=== PATIENT | female | born 1985 | race Caucasian/White ===

== ENCOUNTER 2023-01-10 16:42 | Emergency (ER) | payer BC, SELFPAY ==
[2023-01-10 16:47] VITALS: BP 105/80; PULSE 84; RESP 20; TEMP 36.8; O2SAT 97; BMI 37.6
--- NOTE | 2023-01-10 16:59 | ED_ITS ---
HPI - General Adult General Chief complaint: Anxiety Stated complaint: anxiety Time Seen by Provider: 01/10/23 16:48 Source: patient Mode of arrival: walk-in Limitations: no limitations History of Present Illness HPI narrative: patient is a 37-year-old female presents to the Emergency Room with her for evaluation of panic and anxiety. Patient has a long history of anxiety attacks and is treated with multiple medications through his psychiatrist and participates in counseling with [facility] mental health. She denies any alcohol or drug use. patient denies any suicidal or homicidal ideations. States she has been struggling with anxiety attacks for the past five days, she contacted her psychiatrist regarding medication and was sent to the Emergency Room. Patient states her medication dosages have not changed, she's had increased stress with her family and financial situation. She reports having support in the home. She denies any pain or discomfort denies chest pain or shortness of breath. Patient states she does have her medications at home. Patient feels she is having a falling out with her counselor as her son is also involved in counseling getting mixed reports. reports patient feels safe in the home and there is no guns or other readily available items for self harm, and pt reports no intentions. Onset (ago): day(s) (5) Related Data Home Medications Medication Instructions Recorded Confirmed cariprazine 1.5 mg capsule 1.5 mg PO Q24H 01/10/23 01/10/23 (Vraylar) lamotrigine 150 mg tablet 150 mg PO BID 01/10/23 01/10/23 (Lamictal) sertraline 100 mg tablet (Zoloft) 100 mg PO Q24H 01/10/23 01/10/23 Previous Rx's Medication Instructions Recorded hydroxyzine pamoate 50 mg capsule 50 mg PO TID PRN anxiety #12 caps 01/10/23 (Vistaril) hydroxyzine pamoate 50 mg capsule 50 mg PO TID PRN anxitey #12 caps 01/10/23 (Vistaril) hydroxyzine pamoate 50 mg capsule 50 mg PO TID PRN anxitey #12 caps 01/10/23 (Vistaril) Allergies Allergy/AdvReac Type Severity Reaction Status Date / Time pertussis vaccine,adsorbed Allergy Intermediate Verified 01/10/23 16:51 Review of Systems ROS Constitutional Denies: fever or chills Eyes Denies: change in vision Cardiovascular Denies: chest pain, palpitations, edema or shortness of breath when lying down Respiratory Denies: shortness of breath Genitourinary Denies: painful urination or urinary frequency Musculoskeletal Denies: back pain Integumentary/Breast Denies: rash Neurological Denies: headache Psychiatric Reports: anxiety Endocrine Denies: excessive urination Allergic/Immunologic Denies: hives Exam Narrative: Exam Narrative: Nurses notes and vital signs reviewed and patient is not hypoxic. General: The patient appears well sitting comfortably on the cot, patient tearful when discussing home stressors and recurrent anxiety/panic attacks Skin: Warm, dry, no pallor noted. Head: Normocephalic, atraumatic Neck: Supple, trachea mid-line, no tenderness, no lymphadenopathy Eye: Pupils are equal, round and reactive to light, EOMI Ears, Nose, Mouth, and Throat: TM are clear, normal light reflex, oral mucosa is moist, no posterior oropharynx erythema or hypertrophy, uvula is mid-line Cardiovascular: Regular Rate and Rhythm Respiratory: Patient is in no distress, no accessory muscle use, lungs are clear to auscultation, no wheezing, rales or rhonchi. Chest Wall: no tenderness Back: non-tender, no CVA tenderness Musculoskeletal: normal ROM, no tenderness, no swelling, no signs of self injury GI: Normal bowel sounds, no tenderness to palpation, no masses appreciated. No rebound, guarding, or rigidity noted. Neurological: A&O x4 Psychiatric: Cooperative, anxious, easily redirectable Constitutional: Vital Signs, click to edit/add: Vital Signs - 24 hr 01/10/23 16:47 01/10/23 18:02 Temperature 98.2 F Pulse Rate [Monito r] 84 70 Respiratory Rate 20 18 Blood Pressure [Ri ght Arm] 105/80 H Pulse Oximetry 97 97 Oxygen Delivery Me thod Room Air Room Air Course Vital Signs Vital signs: Vital Signs Temperature 98.2 F 01/10/23 16:47 Pulse Rate 84 01/10/23 16:47 Respiratory Rate 20 01/10/23 16:47 Blood Pressure 105/80 H 01/10/23 16:47 Pulse Oximetry 97 01/10/23 16:47 Oxygen Delivery Method Room Air 01/10/23 16:47 Temperature 98.2 F 01/10/23 16:47 Pulse Rate 70 01/10/23 18:02 Respiratory Rate 18 01/10/23 18:02 Blood Pressure 105/80 H 01/10/23 16:47 Pulse Oximetry 97 01/10/23 18:02 Oxygen Delivery Method Room Air 01/10/23 18:02 Medical Decision Making MDM Narrative Medical decision making narrative: patient has taken Valium in the past for acute episodes with relief, she is on three main baseline medications. She denies any suicidal or homicidal ideations and her at bedside is on board with a safe home plan in home environment. Patient will speak with the [facility] mental health counseling regarding outpatient follow-up for further treatment patient has no other symptoms of chest pain or shortness of breath Patient spoke with mental health counselor, did not feel any need for urgent intervention. The patient declines any follow-up with her intervention team and has established counseling through, patient reports feeling better after medication and plans to contact her therapist to discuss ongoing treatment. She'll be supplemented with a prescription for Vistaril and we discussed the sedation side effects, do not recommend driving and discuss further medication treatments with her psychiatrist The patient is to followup with primary care physician in next 2-3 days or to return to the emergency department should any of the signs or symptoms worsen or new symptoms develop. Patient had questions answered. The patient agrees with the following Diagnosis and Treatment plan and the patient will be discharged home. Discharge Plan Discharge Chief Complaint: Anxiety Clinical Impression: Acute anxiety Patient Disposition: Home, Self-Care Condition: Good Prescriptions: New hydroxyzine pamoate [Vistaril] 50 mg capsule 50 mg PO TID PRN (Reason: anxiety) Qty: 12 0RF hydroxyzine pamoate [Vistaril] 50 mg capsule 50 mg PO TID PRN (Reason: anxitey) Qty: 12 0RF hydroxyzine pamoate [Vistaril] 50 mg capsule 50 mg PO TID PRN (Reason: anxitey) Qty: 12 0RF Continued lamotrigine [Lamictal] 150 mg tablet 150 mg PO BID sertraline [Zoloft] 100 mg tablet 100 mg PO Q24H Vraylar 1.5 mg capsule 1.5 mg PO Q24H Instructions: Anxiety (ED) Interventions: ED Discharge Assessment Last Done: 01/10/23 18:02 Stand Alone Forms: Portal Instructions Referrals: CARMELO CHAVEZ [Primary Care Provider] - 1 week Follow Up Appointments: [facility] Mental health: z( crisis line) Discharge Date/Time: 01/10/23 18:04
[2023-01-10] MEDS: DIAZEPAM 5 MG TABLET PO (17:15)
[2023-01-10 18:02] VITALS: PULSE 70; RESP 18; O2SAT 97
== END 2023-01-10 18:04 | disposition home or self-care (01) ==
LOC: ER 17:55
PROVIDERS: Emergency Provider Emergency Medicine; PCP Family Medicine
DX: F41.9 Anxiety disorder, unspecified (principal); Z79.899 Other long term (current) drug therapy
CPT/HCPCS: 99283

== ENCOUNTER 2024-12-11 23:03 | Emergency (ER) | payer MEDICAID, SELFPAY ==
[2024-12-11 23:07] VITALS: BP 118/60; PULSE 64; TEMP 37.1; O2SAT 98; BMI 29.0
--- NOTE | 2024-12-11 23:29 | ED.EXTPRO1 ---
HPI - Extremity Problem General Chief complaint: Extremity Problem, Nontraumatic Stated complaint: ARM NUMBNESS Time Seen by Provider: 12/11/24 23:12 Source: patient Mode of arrival: walk-in Limitations: no limitations History of Present Illness HPI Narrative: The patient is a 39-year-old female presenting to the emergency department for right upper extremity pain and numbness. She states that the pain is so severe she is unable to move her right upper extremity she cannot feel anything. She states that she has fibromyalgia and this feels like a acute exacerbation of her chronic pain. Patient indicated that trying to move her arm makes it worse. Nothing makes it better. She is not able to sleep. She takes gabapentin and it has not helped with her pain. Patient does not go to pain clinic. Patient does not go to physical therapy. Patient denied any heavy lifting, moving, twisting or repetitive movements. This has happened to the patient before Related Data Home Medications ?Medication ?Instructions ?Recorded ?Confirmed cariprazine 1.5 mg capsule 1.5 mg PO Q24H 01/10/23 01/10/23 (Vraylar) lamotrigine 150 mg tablet 150 mg PO BID 01/10/23 01/10/23 (Lamictal) sertraline 100 mg tablet (Zoloft) 100 mg PO Q24H 01/10/23 01/10/23 famotidine 40 mg tablet 40 mg PO QDAY 01/11/23 01/11/23 Previous Rx's ?Medication ?Instructions ?Recorded hydroxyzine pamoate 50 mg capsule 50 mg PO TID PRN anxiety #12 caps 01/10/23 (Vistaril) hydroxyzine pamoate 50 mg capsule 50 mg PO TID PRN anxitey #12 caps 01/10/23 (Vistaril) hydroxyzine pamoate 50 mg capsule 50 mg PO TID PRN anxitey #12 caps 01/10/23 (Vistaril) cyclobenzaprine 10 mg tablet 10 mg PO TID PRN muscle spasm #10 12/11/24 tabs hydrocodone 5 mg-acetaminophen 325 1 tab PO Q6H PRN pain #10 tabs 12/11/24 mg tablet Allergies Allergy/AdvReac Type Severity Reaction Status Date / Time pertussis vaccine,adsorbed Allergy Intermediate Unknown Verified 12/11/24 23:07 Review of Systems ROS Status of ROS 10 or more systems reviewed and unremarkable except as noted in history and below [facility] Social History Little interest or pleasure in doing things: not at all Feeling down, depressed, or hopeless: not at all Exam Constitutional Vital Signs, click to edit/add: Last Vital Signs Temp 98.8 F 12/11/24 23:07 Pulse 64 12/11/24 23:07 Resp 16 12/11/24 23:07 BP 118/60 12/11/24 23:07 Pulse Ox 98 12/11/24 23:07 O2 Del Method Room Air 12/11/24 23:07 Common normals: no apparent distress, average body habitus, oriented x3, no limitations, healthy appearing, alert and well nourished General appearance: cooperative, in distress and anxious Orientation/consciousness: Yes awake, Yes oriented to person, Yes oriented to place and Yes oriented to time HENHI Common normals: normocephalic, head/scalp atraumatic, hearing grossly normal bilaterally and moist oral mucous membranes Face and sinus: normal facial exam Eye Common normals: PERRL, EOMs intact bilaterally and conjunctivae normal Neck & C-Spine Common normals: full ROM, no lymphadenopathy, supple, no meningeal signs, no JVD, thyroid normal and no carotid bruits General: normal visual inspection and trachea midline Chest Common normals: inspection of chest normal and palpation of chest normal Respiratory Common normals: normal respiratory effort, no retractions, no use of accessory muscles and clear to auscultation bilaterally Cardio Common normals: no JVD, regular rate, regular rhythm, S1 normal heart sound, S2 normal heart sound, no gallops, no clicks and no murmurs Extremity Common normals: normal to inspection, full ROM, normal capillary refill, no joint enlargement and no clubbing, cyanosis or edema General: normal exam except as noted Right upper extremity: upper arm (Exquisitely painful to the touch.) Course Course Hospital Course: Patient was seen and evaluated. I immediately ordered Toradol 15 mg IM and orphenadrine 60 mg IM. I ordered some basic metabolic panel and magnesium. Patient also had an ultrasound it was limited to the right upper extremity performed by me. She has no risk factors for DVT but I very carefully examine the arm for compressibility of the veins and it was a very easy study to perform. Vital Signs Vital signs: Vital Signs Temperature 98.8 F 12/11/24 23:07 Pulse Rate 64 12/11/24 23:07 Respiratory Rate 16 12/11/24 23:07 Blood Pressure 118/60 12/11/24 23:07 Pulse Oximetry 98 12/11/24 23:07 Oxygen Delivery Method Room Air 12/11/24 23:07 Temperature 98.8 F 12/11/24 23:07 Pulse Rate 64 12/11/24 23:07 Respiratory Rate 16 12/11/24 23:07 Blood Pressure 118/60 12/11/24 23:07 Pulse Oximetry 98 12/11/24 23:07 Oxygen Delivery Method Room Air 12/11/24 23:07 MDM - Extremity (Nontraumatic) MDM Narrative Medical decision making narrative: In summary the patient has pain in the right upper extremity could be attributed to the following: Cervical radiculopathy, musculoskeletal strain, DVT, electrolyte abnormality. She does have right hand dominance and this is her right upper extremity it could be from overuse. Little clinical concern that there is risk factors for DVT. But I did do an ultrasound scan on her anyway to help narrow the differential. No evidence of any type of venous occlusion. Differential Diagnosis Differential diagnosis: Likely herpes zoster (Ruled out with no rash present), gout (It is not the joints that are hurting.), cellulitis (No redness, warmth, or well-defined or demarcated borders), superficial thrombophlebitis (No red or firm vessels present. No recent IVs.) and deep venous thrombosis of upper extremity (No risk factors but I personally use a ultrasound to look at all of the vessels in the right upper extremity there is negative evidence of a DVT.) Medical Records Attestation: I reviewed the patient's medical records. Medical records narrative: Patient's basic metabolic panel and magnesium were normal. Lab Data Attestation: I reviewed the patient's lab results. Labs: Lab Results 12/11/24 Range/Units 23:36 Sodium 141 (136-145) mmol/L Potassium 3.7 (3.5-5.1) mmol/L Chloride 107 (98-107) mmol/L Carbon Dioxide 25.4 (21.0-32.0) mmol/L Anion Gap 12.3 BUN 10.0 (7.0-18.0) mg/dL Creatinine 0.73 (0.55-1.02) mg/dL Est GFR ( Amer) >60 (>=60 mL/min/1.73m^2) Est GFR (Non-Af Amer) >60 (>=60 mL/min/1.73m^2) BUN/Creatinine Ratio 13.7 Glucose 100 (74-106) mg/dL Calcium 8.2 L (8.5-10.1) mg/dL Magnesium 2.0 (1.8-2.4) mg/dL Discharge Plan Discharge Chief Complaint: Extremity Problem, Nontraumatic Clinical Impression: Pain of right upper extremity Patient Disposition: Home, Self-Care Time of Disposition Decision: 23:37 Condition: Good Mode of Transportation: Private Vehicle Prescriptions / Home Meds: New hydrocodone-acetaminophen 5-325 mg tablet 1 tab PO Q6H PRN (Reason: pain) Qty: 10 0RF cyclobenzaprine 10 mg tablet 10 mg PO TID PRN (Reason: muscle spasm) Qty: 10 0RF No Action lamotrigine [Lamictal] 150 mg tablet 150 mg PO BID sertraline [Zoloft] 100 mg tablet 100 mg PO Q24H Vraylar 1.5 mg capsule 1.5 mg PO Q24H hydroxyzine pamoate [Vistaril] 50 mg capsule 50 mg PO TID PRN (Reason: anxiety) Qty: 12 0RF hydroxyzine pamoate [Vistaril] 50 mg capsule 50 mg PO TID PRN (Reason: anxitey) Qty: 12 0RF hydroxyzine pamoate [Vistaril] 50 mg capsule 50 mg PO TID PRN (Reason: anxitey) Qty: 12 0RF famotidine 40 mg tablet 40 mg PO QDAY Print Language: Gambian Instructions: Arm Pain (ED) Additional Instructions: Thank me with your care today. Please make sure you follow-up with your primary care physician. This may be an acute exacerbation of your chronic pain. You may need an MRI of your cervical spine to rule out any type of nerve damage or compression. She may also want you to participate in physical therapy. Referrals: CARMELO CHAVEZ [Primary Care Provider, Family Practice] - 1 week Discharge Date/Time: 12/12/24 01:07 Procedures ED US Ultrasound Lower Extrem Ultrasound Lower Extremity exam #1: Anatomical areas examined: other (Right upper extremity vessels/venous return) Indications: limb pain/tenderness Exam type: other (Limited right upper extremity ultrasound of the venous circulation.) Descriptions/Findings: All of the venous vessels were compressible. I specifically assessed the axillary vein, brachial vein, cephalic vein, basilic vein, medial cubital vein, accessory cephalic vein and followed the cephalic vein as far as I could to the mid forearm. All of the vessels were compressible. No evidence of any type of resistance. The patient had collapsible veins that were measured every 1 cm.
[2024-12-11] MEDS: KETOROLAC TROMETHAMINE 30 MG/ML VIAL 15 MG IM (23:47)
[2024-12-11] MEDS: ORPHENADRINE 60 MG/2 ML VIAL IM (23:48)
[2024-12-12] LABS: Anion Gap 12.3; BUN Creatinine Ratio 13.7; Calcium 8.2 mg/dL (8.5-10.1); Carbon Dioxide 25.4 mmol/L (21.0-32.0); Chloride 107 mmol/L (98-107); Estimated GFR (African America >60 (>=60 mL/min/1.73m^2); Estimated GFR (Non-African Ame >60 (>=60 mL/min/1.73m^2); Glucose 100 mg/dL (74-106); Potassium 3.7 mmol/L (3.5-5.1); Sodium 141 mmol/L (136-145)
== END 2024-12-12 01:07 | disposition home or self-care (01) ==
PROVIDERS: Emergency Provider Emergency Medicine; PCP Family Medicine
DX: M79.601 Pain in right arm (principal); M79.7 Fibromyalgia
CPT/HCPCS: 36415; 80048; 83735; 96372; 99284; J1885; J2360